=== PATIENT | female | born 1985 | race Caucasian/White ===

== ENCOUNTER 2016-11-25 11:58 | Emergency (ER) | payer OTHER ==
[2016-11-25 14:36] LABS: HEMOGLOBIN 14.5 gm/dl (12.3-15.3); RED BLOOD COUNT 4.87 M/UL (4.00-5.10); WHITE BLOOD COUNT 7.3 K/UL (4.5-11.0)
[2016-11-25 14:50] LABS: BUN/CREATININE RATIO 18 (0-10)
== END 2016-11-25 15:22 | disposition home or self-care (01) ==
LOC: ER1 11:58
PROVIDERS: Preventive Medicine Occupational Medicine
DX: S16.1XXA Strain of muscle, fascia and tendon at neck level, initial encounter (principal); F17.210 Nicotine dependence, cigarettes, uncomplicated; Z98.51 Tubal ligation status; X58.XXXA Exposure to other specified factors, initial encounter
CPT/HCPCS: 36415; 72040; 80048; 85025; 96372; 96374; 99283; J1885; J3360